=== PATIENT | female | born 1980 | race Two or more races ===

== ENCOUNTER 2017-07-19 19:06 | Emergency (ER) | payer MEDICAID ==
[~2017-07-19] VITALS: Ht 157.5 cm; Wt 70.3 kg
[~2017-07-19 19:06] MED LIST: CIPRO500 MG PO; COLACE100 MG PO; IBUPROFEN600 MG ORAL; NKM; PHENAZOPYRIDIN200 MG ORAL; TRAMADOL HCL50 MG PO; ZOFRAN4 MG PO; prenatal vitamin
[2017-07-19] MEDS ORDERED: TYLENOL EXTRA500 MG ORAL (19:14)
[2017-07-19 19:43] VITALS: BP 136/80
[2017-07-19 19:51] VITALS: BP 128/72
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
== END 2017-07-19 19:54 | disposition home or self-care (01) ==
LOC: EMR 19:49
DX: S13.4XXA Sprain of ligaments of cervical spine, initial encounter (principal); V49.9XXA Car occupant (driver) (passenger) injured in unspecified traffic accident, initial encounter; Y92.9 Unspecified place or not applicable
CPT/HCPCS: 99282

== ENCOUNTER 2019-10-06 09:04 | Emergency (ER) | payer MEDICAID ==
[~2019-10-06] VITALS: Ht 157.5 cm; Wt 72.6 kg
[~2019-10-06 09:04] MED LIST changes: +TYLENOL EXTRA500 MG ORAL
--- NOTE | 2019-10-06 09:25 | NUR ---
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
[2019-10-06 09:26] VITALS: BP 131/91
--- NOTE | 2019-10-06 09:26 | NUR ---
ED Nurse Note: Pt walked in to ER c/o right earache since last night. Reports she can't hear anything out of right ear now. Denies any disharges. As per patient, she used headphones for 8 hrs at work last tues. Patient also c/o right shoulder, neck and back pain. Afebrile. No SOB. VSS.
[2019-10-06] MEDS ORDERED: Tylenol #3 tab (300mg/30mg) ORAL ONE (09:30)
--- NOTE | 2019-10-06 10:20 | NUR ---
ED Nurse Note: ERMD at bedside.
--- NOTE | 2019-10-06 10:53 | Emergency Room Report ---
History of Present Illness General Chief Complaint: Earache Source: Patient Present Illness HPI The patient states that a few days ago she had a "itchy" sensation in her right ear. She states that over the following days she noted some discomfort in the right ear and at work she uses an ear piece. She notes that the ear patient became more uncomfortable. Over the past 24 hours she has had increasing pain in the right ear. She states the pain also radiates down her right neck. She denies headache. She denies fever chills. She denies nausea or vomiting. She states that she does feel like she has decreased hearing on that side. She has no other complaints. Allergies: Coded Allergies: No Known Allergies (Unverified , 01/15/13) Patient History Past Medical History: see triage record Past Surgical History: none Social History: Denies: smoking, alcohol use, drug use Last Menstrual Period: 10/05/19 Now: No : 2 Para: 2 Reviewed Nursing Documentation: PMH: Agreed; PSxH: Agreed Nursing Documentation-PMH Past Medical History: No History, Except For Hx Cardiac Problems: No - HEADACHE Review of Systems All Other Systems: negative except mentioned in HPI Physical Exam Vital Signs Date Time Temp Pulse Resp B/P (MAP) Pulse Ox O2 Delivery O2 Flow Rate FiO2 10/06/19 09:17 98.1 92 18 131/91 (104) 99 Room Air Sp02 EP Interpretation: reviewed, normal General Appearance: no apparent distress, alert, GCS 15, non-toxic Head: normocephalic, atraumatic Eyes: bilateral eye normal inspection, bilateral eye PERRL ENT: hearing grossly normal, normal pharynx, no angioedema, normal voice, other - R. external canal swollen and erythematous. No auricle swelling or erythema. No mastoid swelling or erythema. Neck: normal inspection Respiratory: no respiratory distress, no retraction, no accessory muscle use, speaking full sentences Cardiovascular #1: no edema Rectal: deferred Musculoskeletal: back normal, normal range of motion, gait/station normal, non- tender Neurologic: alert, motor strength/tone normal, oriented x3, sensory intact, responsive, speech normal Psychiatric: judgement/insight normal, memory normal, mood/affect normal, no suicidal/homicidal ideation Skin: no rash, normal color Medical Decision Making Diagnostic Impression: Primary Impression: Otitis externa ER Course This patient has findings on exam consistent with otitis externa. There is no evidence of mastoiditis or malignant otitis based on physical exam. I will place the patient on topical antibiotics. I gave the patient a "watch and wait " prescription for oral antibiotics as a precaution. She is instructed to only take these antibiotics if the topical antibiotics are not effective on her symptoms worsen. I did not identify an emergency medical condition. The patient is given close return precautions and follow-up instructions. Last Vital Signs Date Time Temp Pulse Resp B/P (MAP) Pulse Ox O2 Delivery O2 Flow Rate FiO2 10/06/19 10:07 98.1 10/06/19 09:26 92 18 131/91 99 Room Air Status: improved Disposition: HOME, SELF-CARE Condition: Improved Referrals: NON PHYSICIAN (PCP) Patient Instructions: Otitis Externa, [id number] Socorro Wilson DO Oct 06, 2019 10:53
[2019-10-06] MEDS ORDERED: CIPRODEX OTIC7.5 M1 RIGHT EAR (10:57)
[2019-10-06] MEDS ORDERED: AMOX TR-K CLV1 EAC2 ORAL (10:57)
[2019-10-06] MEDS ORDERED: ACETAMINOPHEN-1 EAC1 ORAL (10:57)
[2019-10-06 11:04] VITALS: BP 131/91
--- NOTE | 2019-10-06 11:04 | NUR ---
ED Nurse Note: Pt cleared by ERMD for discharge. DC instructions/prescription was given and explained to pt and verbalized understanding of teachings. All medical deviecs such as ID band removed. Pt is AAO x4, ambulatory and left with all personal belongings.
== END 2019-10-06 11:04 | disposition home or self-care (01) ==
LOC: EMR 09:44
DX: H60.91 Unspecified otitis externa, right ear (principal)
CPT/HCPCS: 99282